=== PATIENT | female | born 2000 | race Caucasian/White ===

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

== ENCOUNTER 2020-06-25 22:00 | Emergency (ER) | payer OTHER ==
[~2020-06-25] VITALS: Ht 149.9 cm; Wt 40.8 kg
[2020-06-25 22:14] VITALS: BP 129/82
[2020-06-25] MEDS ORDERED: MAGNESIUM CITRATE 300 ML BTL PO ONE (23:50)
[2020-06-26] MEDS ORDERED: MAGN400S60 PO (00:16)
[2020-06-26 00:24] VITALS: BP 127/80
== END 2020-06-26 00:24 | disposition home or self-care (01) ==
LOC: MED 22:00
DX: R10.9 Unspecified abdominal pain (principal)
CPT/HCPCS: 74018; 99283

== ENCOUNTER 2021-06-07 07:52 | Emergency (ER) | payer OTHER ==
[~2021-06-07] VITALS: Ht 149.9 cm; Wt 41.3 kg
[~2021-06-07 07:52] MED LIST: MAGN400S60 PO
[2021-06-07 08:21] VITALS: BP 135/79
--- NOTE | 2021-06-07 08:53 | NUR ---
20 Y/O FEMALE BIB SELF FOR C/O LOWER BACK PAIN RATED 7/10 WHICH RADIATES TO THE MID BACK. SHE DENIES FEVER/CHILLS/SOB. PT A&O X4. SIDE RAIL X1 BED IN LOWEST POSITION. PMH:LUPUS ALLERGIES:DENIES HOME MEDS [place], [place]
--- NOTE | 2021-06-07 09:16 | NUR ---
DR. WALKER AT PT BEDSIDE
[2021-06-07] MEDS ORDERED: cefTRIAXone 1,000 MG in LIDOCAINE MPF 1% 2.1 ML IM ONE (10:25)
[2021-06-07] MEDS ORDERED: KETOROLAC 15 MG/ML VIAL IM ONE (10:25)
[2021-06-07] MEDS ORDERED: DEXAMETHASONE 10 MG/ML VIAL IM ONE (10:25)
[2021-06-07] MEDS ORDERED: CEFP100T18 PO (10:29)
[2021-06-07] MEDS ORDERED: cefTRIAXone 1,000 MG VIAL ONE (10:42)
[2021-06-07] MEDS ORDERED: LIDOCAINE MPF 1% 5 ML ONE (10:42)
[2021-06-07 11:32] VITALS: BP 106/73
--- NOTE | 2021-06-07 12:00 | NUR ---
Patient discharged with v/s stable. Written and verbal after care instructions given and explained. Patient alert, oriented and verbalized understanding of instructions. Ambulatory with steady gait. All questions addressed prior to discharge. ID band removed. Patient advised to follow up with PMD. Rx of CEFPODOXIME PROXETIL given. Patient educated on indication of medication including possible reaction and side effects. Opportunity to ask questions provided and answered.
== END 2021-06-07 11:54 | disposition home or self-care (01) ==
LOC: MED 07:52
DX: N39.0 Urinary tract infection, site not specified (principal); M54.9 Dorsalgia, unspecified; Z79.899 Other long term (current) drug therapy
CPT/HCPCS: 81002; 81025; 96372; 99284; J0696; J1100; J1885; J2001